=== PATIENT | female | born 1990 | race Caucasian/White ===

== ENCOUNTER 2018-04-18 20:20 | Emergency (ER) | payer SELFPAY ==
[2018-04-18] MEDS ORDERED: ACETAMINOPHEN 325 MG TAB ONE (20:37)
== END 2018-04-18 21:17 | disposition home or self-care (01) ==
LOC: EDH 20:20
DX: J10.1 Influenza due to other identified influenza virus with other respiratory manifestations (principal)

== ENCOUNTER 2018-09-06 12:31 | Emergency (ER) | payer OTHER ==
[2018-09-06] MEDS ORDERED: DIPHENHYDRAMINE HCL 25 MG CAPSULE ONE (13:08)
== END 2018-09-06 13:50 | disposition home or self-care (01) ==
LOC: EDH 12:31
DX: H10.12 Acute atopic conjunctivitis, left eye (principal)
CPT/HCPCS: 99283; Q0163

== ENCOUNTER 2019-07-10 23:09 | Emergency (ER) | payer SELFPAY ==
[2019-07-10] MEDS ORDERED: OCTYL 2-CYANOACRYLATE 1 EACH TP ONE (23:33)
== END 2019-07-10 23:52 | disposition home or self-care (01) ==
LOC: EDH 23:09
DX: S61.411A Laceration without foreign body of right hand, initial encounter (principal); W26.0XXA Contact with knife, initial encounter; Y93.G3 Activity, cooking and baking; Y92.098 Other place in other non-institutional residence as the place of occurrence of the external cause; Y99.8 Other external cause status
CPT/HCPCS: 12001